=== PATIENT | female | born 1965 | race Caucasian/White ===

== ENCOUNTER 2018-03-05 08:29 | Day surgery (SDC) | payer OTHER ==
[2018-03-03 14:49] VITALS: BMI 34.7
[~2018-03-05 08:29] MED LIST: LACTATED RINGERS 1,000 ML IV SCH; LIDOCAINE 1% 20 ML VIAL (10MG/ML) FOR IV START INTRADERMA PRN; MIDAZOLAM (PF) 2 MG/2 ML VIAL IV PRN
[2018-03-05 09:04] VITALS: RESP 16; TEMP 98.8
[2018-03-05] MEDS ORDERED: PROPOFOL 10 MG/ML 20 ML VIAL IV ONE (10:16)
--- NOTE | 2018-03-05 10:33 | P.PCN ---
Date of Procedure: 03/05/18 Procedure(s) Performed: BRIEF HISTORY: Patient is a 53-year-old pleasant, white female scheduled for an elective colonoscopy as a part of screening for colorectal neoplasia. PROCEDURE PERFORMED: Colonoscopy with snare polypectomy. PREOPERATIVE DIAGNOSIS: Screening for colorectal neoplasia. IV sedation per Anesthesia. PROCEDURE: After informed consent was obtained, the patient, was brought into the endoscopy unit. IV sedation was administered by Anesthesia under continuous monitoring. Digital rectal examination was normal. Initially the Olympus CF- 160 flexible video colonoscope was then inserted in the rectum, gradually advanced into the cecum without any difficulty. Careful examination was performed as the scope was gradually being withdrawn. Ileocecal valve and the appendiceal orifice were visualized and appeared normal. Prep was excellent. Mucosa of the cecum, ascending colon, transverse colon, descending colon, sigmoid colon,appeared normal. In the proximal rectum there were 2 polyps measuring 5 mm and 1 cm in size both of which were removed by snare polypectomy. Retroflexion was performed in the rectum and no lesions were seen. The patient tolerated the procedure well. IMPRESSION: 5 mm and 1 cm proximal rectal polyp status post polypectomy Rest of the colon appeared normal RECOMMENDATIONS: Findings of this examination were discussed with the patient as well as a family. She was advised to follow with the biopsy results. If the biopsy shows adenoma, she can have a repeat colonoscopy in 3-5 years.
[2018-03-05 10:55] VITALS: BP 132/85; PULSE 61
== END 2018-03-05 11:18 | disposition home or self-care (01) ==
LOC: ORWHC2ENDO 08:29
PROVIDERS: ATTEND Internal Medicine Gastroenterology
DX: Z12.11 Encounter for screening for malignant neoplasm of colon (principal); K62.1 Rectal polyp; I10 Essential (primary) hypertension; F39 Unspecified mood [affective] disorder; Z79.3 Long term (current) use of hormonal contraceptives; Z79.899 Other long term (current) drug therapy
CPT/HCPCS: 45385; J2704; 88305

== ENCOUNTER → 2020-03-26 | Outpatient (CLI) | payer OTHER ==
--- NOTE | 2020-03-26 10:48 | CT ---
EXAMINATION TYPE: CT soft tissue neck w con DATE OF EXAM: 03/26/2020 HISTORY: posterior neck mass (marked by BB), left side neck discomfort COMPARISON: NONE CT DLP: 543.4 mGycm. Automated Exposure Control for Dose Reduction was Utilized. TECHNIQUE: CT scan of the neck is performed with IV Contrast, patient injected with 100 mL of Isovue 300, axial images are obtained, coronal and sagittal reformatted images are reviewed. FINDINGS: Airway: No gross abnormality seen. Parotid/submandibular glands: No gross abnormality seen. Carotid/Vascular Structures: No significant abnormality seen. Osseous Structures: Underlying levoconvex scoliotic curvature or positioning in the upper thoracic sp ine. Mild to moderate disc space narrowing C4-C5 level. Other: Metallic BB placed at palpable abnormality posterior left neck axial image 51. This is at C2 v ertebral body level. No worrisome solid or cystic mass or fluid collection is identified at this leve l. There is asymmetric prominent but felt benign subcentimeter lymph node coronal image 53 correspond ing to axial image 58 just superior and lateral to the BB. There are additional scattered subcentimet er lymph nodes throughout the neck bilaterally. No suspicious greater than 1 cm adenopathy is present . IMPRESSION: No concerning mass or fluid collection
== END | disposition home or self-care (01) ==
LOC: RADCTMAIN 08:57
PROVIDERS: ATTEND Family Medicine
DX: R22.1 Localized swelling, mass and lump, neck (principal)
CPT/HCPCS: 70491; Q9967

== ENCOUNTER → 2020-04-13 | Outpatient (CLI) | payer OTHER ==
--- NOTE | 2020-04-16 11:37 | MM ---
Reason for exam: additional evaluation requested from prior study. Last mammogram was performed 1 year and 2 months ago. History: Patient history of other cancer. Family history of breast cancer in father at age 50. Excisional biopsy of the right breast, 2004. Took hormonal contraceptives beginning at age 18. Physical Findings: Nurse Summary: 0.5cm nodule in the right brast at 6 o'clock posterior nipple (nurse ms). MG 3D Diag Mammo W/Cad MELANY Bilateral CC and MLO view(s) were taken. Prior study comparison: January 27, 2019, mammogram. The breast tissue is heterogeneously dense. This may lower the sensitivity of mammography. There is no discrete abnormality. These results were verbally communicated with the patient and result sheet given to the patient on 04/13/20. ASSESSMENT: Incomplete: need additional imaging evaluation, BI-RAD 0 RECOMMENDATION: Ultrasound of the right breast. (palpable by nurse)
--- NOTE | 2020-04-16 11:39 | USB ---
Reason for exam: additional evaluation requested from abnormal screening. History: Patient history of other cancer. Family history of breast cancer in father at age 50. Excisional biopsy of the right breast, 2004. Took hormonal contraceptives beginning at age 18. US Breast Limited RT Right limited breast ultrasound including focal area of concern, retroareolar and axilla demonstrates duct ectasia at 5 o'clock posterior nipple. Targeted scanning at the palpable. Precautionary 6 month follow up mammogram. These results were verbally communicated with the patient and result sheet given to the patient on 04/13/20. ASSESSMENT: Probably benign, BI-RAD 3 RECOMMENDATION: Follow-up diagnostic mammogram of the right breast in 6 months.
== END | disposition home or self-care (01) ==
LOC: RADMAMWWP 14:53
PROVIDERS: ATTEND Family Medicine
DX: N63.10 Unspecified lump in the right breast, unspecified quadrant (principal); R92.8 Other abnormal and inconclusive findings on diagnostic imaging of breast; Z80.3 Family history of malignant neoplasm of breast
CPT/HCPCS: 77062; 77066

== ENCOUNTER → 2020-04-23 | Outpatient (CLI) | payer OTHER ==
--- NOTE | 2020-04-23 11:19 | BMR ---
EXAMINATION TYPE: MR breast BILAT wo/w con DATE OF EXAM: 04/23/2020 COMPARISON: 3-D bilateral breast mammogram April 13, 2020 BI-RADS 0. Right breast diagnostic ultras ound April 13, 2020 BI-RADS 3 HISTORY: FAMILY HISTORY OF MALIGNANT NEOPLASM OF BREAST in father, history of benign excisional biops y right breast 15 years ago, history of recent palpable right breast last week. TECHNIQUE: A series of fat and water weighted images in the long and short axis views of both breasts are obtained in conjunction with dynamic contrast MRI with subtraction technique. The patient was i njected with 10 mL intravenous Gadavist gadolinium contrast. Three-dimensional and additional postp rocessing imaging is created on independent workstation and reviewed during official interpretation o f this study. FINDINGS: Breast parenchyma redemonstrated is heterogeneously dense. T1-weighted images show no suspi cious axillary adenopathy bilaterally. T2 and STIR weighted images show some scattered tiny thin-wall ed cysts bilaterally on background fibroglandular tissue. Dynamic postcontrast imaging shows no suspi cious intramammary adenopathy. There is moderate to severe symmetric background enhancement in both b reasts identified. There are multifocal areas of rounded enhancement bilaterally on background dense tissue measuring under 5 mm in size. With regards to the right breast, no abnormal skin thickening is present. No greater than 5 mm enhanc ing masses or pathologic enhancement. The chest wall is intact. Particular attention to the 6:00 posi tion anteriorly at area of recent clinical concern noted. With regards to the left breast similar findings with slightly more numerous enhancing round lesions measuring 5 mm or smaller in size. No greater than 5 mm enhancing masses. No suspicious Skin thickeni ng. Chest wall is intact. No suspicious incidental findings. IMPRESSION: No MRI evidence for invasive malignancy in either breast. BI-RADS 2 benign findings right breast. BI-RADS 2 benign findings left breast. Recommendation: Return to routine follow-up. Patient due for bilateral breast mammogram March 2021. Consider annual MRI surveillance due to patient's increased risk and/or family history.
== END | disposition home or self-care (01) ==
LOC: RADMRIMAIN 07:43
PROVIDERS: ATTEND Nurse Practitioner Family
DX: Z09 Encounter for follow-up examination after completed treatment for conditions other than malignant neoplasm (principal); Z80.3 Family history of malignant neoplasm of breast
CPT/HCPCS: 77049; C8937; A9585

== ENCOUNTER → 2020-04-25 | Outpatient (CLI) | payer OTHER ==
--- NOTE | 2020-04-25 11:19 | CONS ---
CONSULTATION DATE OF SERVICE: 04/25/2020 This 55-year-old lady who has been evaluated in the sleep center for possible obstructive sleep apnea-hypopnea syndrome. HISTORY OF PRESENT ILLNESS/SLEEP-WAKE EVALUATION: Patient usual sleep schedule on weekdays from 10 p.m. to 5 to 5:20 a.m.; on weekends from 10 p.m. to 7 a.m. She does have problems with falling asleep, although no TV in bedroom. She usually sleeps on the side position. According to her , she snores and she has one episode of nocturia during sleep. She tosses and turns during the night, has sweating. In the morning, she wakes up tired, has difficulties paying attention, has problems with memory and concentration. [place] Sleepiness Scale is 8. Usually, she does not take any naps. PAST MEDICAL HISTORY: Positive for hypertension, hyperlipidemia, sinusitis, acid reflux, possibly ADHD, menopause. PAST SURGICAL HISTORY: Biopsy of right breast benign changes, basal cell carcinoma removed from the skin of the leg. MEDICATIONS: Propranolol 40 mg twice a day, Vyvanse 60 mg once a day, hydrochlorothiazide 12.5 mg once a day, pravastatin 40 mg once a day, aspirin 81 mg once a day. SOCIAL HISTORY: Negative for smoking. Alcohol consumption rarely. FAMILY HISTORY: Heart problems, arthritis, asthma, thyroid problems, cancer. REVIEW OF SYSTEMS: Awakenings from sleep, difficulties to concentrate during the day for several years. PHYSICAL EXAMINATION: GENERAL: lady without distress. VITAL SIGNS: BP 159/94, HR 67, RR 15, height 5 feet 7 inches, weight 230.8, BMI 36.1, temperature 98.5, oxygen saturation at room air 97%. HEENT: PERRLA, EOMI. Oropharynx extremely low position of soft palate. Mallampati 4. NECK: Supple, no JVD. Thyroid is not palpable. LUNGS: Clear to percussion and to auscultation. Good air exchange. No wheezing or rhonchi. HEART: S1, S2 regular. No murmurs, gallops, or rubs. ABDOMEN: Obese. EXTREMITIES: No clubbing or cyanosis. PROMOTIONS REPRESENTATIVE: Awake, alert, and oriented X3. Cranial nerves 2 to 7 intact. There is no fasciculation or atrophy. noted. No focal deficits observed. IMPRESSION: 1. Snoring, awakenings from sleep with nocturia, extremely low position of soft palate, Mallampati 4, difficulties to concentrate during the day, obstructive sleep apnea-hypopnea syndrome. 2. Obesity, body mass index 36.1. 3. Hypertension, not on good control with 2 medications. 4. Hyperlipidemia. 5. Sinusitis. 6. Acid reflux. 7. History of possible attention deficit hyperactivity disorder. 8. Menopause. 9. Status post basal cell carcinoma removed from the skin of the leg. PLAN: 1. Polysomnography for evaluation of patient's breathing during sleep. 2. CPAP/BiPAP titration if sleep study confirms obstructive sleep apnea-hypopnea syndrome. 3. Preferable position during sleep on the side. 4. No driving if patient feels any sleepiness. 5. I will see patient for follow up visit to explain results of testing and following plan. Thank you very much for referring this patient for consultation. Sincerely, Sunny Alba MD, PhD, FAASM Diplomat of [place] [employer] [place] [employer] Operator of [facility] [place] MMODL / IJN: [id number] /
== END | disposition home or self-care (01) ==
LOC: SLEEP 09:57
PROVIDERS: ATTEND Internal Medicine
DX: G47.33 Obstructive sleep apnea (adult) (pediatric) (principal); E66.9 Obesity, unspecified; Z68.36 Body mass index [BMI] 36.0-36.9, adult; I10 Essential (primary) hypertension; E78.5 Hyperlipidemia, unspecified; K21.9 Gastro-esophageal reflux disease without esophagitis; J32.9 Chronic sinusitis, unspecified; Z78.0 Asymptomatic menopausal state; Z86.012 Personal history of benign carcinoid tumor; Z99.89 Dependence on other enabling machines and devices
CPT/HCPCS: 99211

== ENCOUNTER → 2021-01-09 | Outpatient (CLI) | payer OTHER ==
--- NOTE | 2021-01-09 12:15 | MM ---
Reason for exam: follow-up at short interval from prior study. Last mammogram was performed 9 months ago. History: Patient is postmenopausal and history of other cancer. Family history of breast cancer in father at age 50. Excisional biopsy of the right breast, 2004. Took hormonal contraceptives beginning at age 18. Physical Findings: Nurse Summary: 0.5cm nodule in the right breast at 6 o'clock (nurse ms). MG 3D Diag Mammo W/Cad RT CC and MLO view(s) were taken of the right breast. Prior study comparison: April 13, 2020, bilateral MG 3d diag mammo w/cad MELANY. January 27, 2019, mammogram. The breast tissue is heterogeneously dense. This may lower the sensitivity of mammography. There is no discrete abnormality including area of concern. These results were verbally communicated with the patient and result sheet given to the patient on 01/09/21. ASSESSMENT: Incomplete: need additional imaging evaluation, BI-RAD 0 RECOMMENDATION: Ultrasound of the right breast. (at palpable) Manage patient on a clinical basis.
--- NOTE | 2021-01-09 12:16 | USB ---
Reason for exam: additional evaluation requested from abnormal screening. History: Patient is postmenopausal and history of other cancer. Family history of breast cancer in father at age 50. Excisional biopsy of the right breast, 2004. Took hormonal contraceptives beginning at age 18. US Breast Limited RT Right limited breast ultrasound including focal area of concern, retroareolar and axilla demonstrates ducts at the posterior nipple. These results were verbally communicated with the patient and result sheet given to the patient on 01/09/21. ASSESSMENT: Benign, BI-RAD 2 RECOMMENDATION: Routine screening mammogram of both breasts in 3 months. Back on schedule for March 2021. Manage patient on a clinical basis.
== END | disposition home or self-care (01) ==
LOC: RADMAMWWP 10:47
PROVIDERS: ATTEND Family Medicine
DX: R92.2 Inconclusive mammogram (principal); Z80.3 Family history of malignant neoplasm of breast
CPT/HCPCS: 77061; 77065

== ENCOUNTER → 2022-10-16 | Outpatient (CLI) | payer OTHER ==
--- NOTE | 2022-10-17 07:26 | MM ---
Reason for Exam: Screening (asymptomatic). Last mammogram was performed 1 year(s) and 3 month(s) ago. Patient History: Menarche at age 14. First Full-Term at age 29. Postmenopausal. Other cancer, age 46. Hormonal Contraceptives, from age 18 until age 52. 2004, Excisional Biopsy on the Right side. Father had breast cancer, age 50. Risk Values: More 5 year model risk: 1.6%. NCI Lifetime model risk: 10.4%. Prior Study Comparison: 04/13/2020 Bilateral Diagnostic Mammogram, [facility]. 01/09/2021 Right Diagnostic Mammogram, [facility]. 06/25/2021 Bilateral Screening Mammogram, [facility]. Tissue Density: The breast tissue is heterogeneously dense. This may lower the sensitivity of mammography. Findings: Analyzed By CAD. There is no suspicious group of microcalcifications or new suspicious mass in either breast. Overall Assessment: Benign, BI-RAD 2 Management: Screening Mammogram of both breasts in 1 year. . Patient should continue monthly self-breast exams. A clinical breast exam by your physician is recommended on an annual basis. This exam should not preclude additional follow-up of suspicious palpable abnormalities. Note on More scores and lifetime risk: 1. A More score greater than 3% is considered moderate risk. If this is the case, consider specialist referral to assess eligibility for a risk reducing agent. 2. If overall lifetime risk for the development of breast cancer is 20% or higher, the patient may qualify for future screening with alternating mammogram and breast MRI. Electronically signed and approved by: Shawn Castro M.D. Radiologis
== END | disposition home or self-care (01) ==
LOC: RADMAMWWP 08:21
PROVIDERS: ATTEND Family Medicine
DX: Z12.31 Encounter for screening mammogram for malignant neoplasm of breast (principal); Z78.0 Asymptomatic menopausal state; Z80.3 Family history of malignant neoplasm of breast
CPT/HCPCS: 77063; 77067

== ENCOUNTER 2023-01-27 09:13 | Day surgery (SDC) | payer OTHER ==
[~2023-01-27 09:13] MED LIST changes: +LIDOCAINE 1% (10MG/ML) FOR IV START INTRADERMA PRN; -LIDOCAINE 1% 20 ML VIAL (10MG/ML) FOR IV START INTRADERMA PRN; -MIDAZOLAM (PF) 2 MG/2 ML VIAL IV PRN
[2023-01-27 09:51] VITALS: RESP 16; TEMP 97.4
[2023-01-27] MEDS ORDERED: PROPOFOL 10 MG/ML 20 ML VIAL IV ONE (10:07)
--- NOTE | 2023-01-27 10:14 | P.GSHP ---
History of Present Illness H&P Date: 01/27/23 Chief Complaint: Colon cancer screening 58-year-old here for colonoscopy. Last colonoscopy 5 years ago had 2 hyperplastic polyps. No bowel complaints. No family history of colon cancer. Past Medical History Past Medical History: Cancer, GERD/Reflux, Hyperlipidemia, Hypertension, Sleep Apnea/CPAP/BIPAP Additional Past Medical History / Comment(s): occasional blood in stool in past, no longer needs BP med due to weight loss, essential tremors, had sleep study- was dx. & then had bariatric before got CPAP, no longer having problems, skin cancer History of Any Multi-Drug Resistant Organisms: None Reported Past Surgical History: Bariatric Surgery, Breast Surgery Additional Past Surgical History / Comment(s): LT BREAST LUMPECTOMY-BENIGN, gastric sleeve 2 1/2yrs ago Past Anesthesia/Blood Transfusion Reactions: No Reported Reaction, Motion Sickness Smoking Status: Never smoker - Past Family History Father Family Medical History: Cancer Medications and Allergies Home Medications Medication Instructions Recorded Confirmed Type ALPRAZolam [Xanax] 0.25 mg PO DAILY PRN 03/03/18 01/23/23 History Calcium Citrate/Vitamin D3 1 each PO DAILY 03/03/18 01/23/23 History [Calcitrate + Vit D Caplet] Multivit/Folic Acid/Vit K1 1 each PO DAILY 03/03/18 01/23/23 History [One-A-Day Women's 50 Plus Tab] Omeprazole 40 mg PO DAILY PRN 03/03/18 01/23/23 History Propranolol [Inderal] 20 mg PO BID 03/03/18 01/23/23 History hydroCHLOROthiazide 12.5 mg PO DAILY 03/03/18 01/23/23 History Aspirin [[place] Aspirin EC] 81 mg PO DAILY 01/23/23 01/23/23 History Dextroamphetamine/Amphetamine 30 mg PO BID 01/27/23 01/27/23 History [Adderall] Allergies Allergy/AdvReac Type Severity Reaction Status Date / Time No Known Allergies Allergy Verified 01/27/23 09:40 Surgical - Exam Vital Signs Temp Pulse Resp BP Pulse Ox 97.4 F L 62 16 137/85 99 01/27/23 09:40 01/27/23 09:40 01/27/23 09:40 01/27/23 09:40 01/27/23 09:40 Physical exam: General: Well-developed, well-nourished HEENT: Normocephalic, sclerae nonicteric Abdomen: Nontender, nondistended Extremities: No edema Neuro: Alert and oriented Assessment and Plan (1) Colon cancer screening Narrative/Plan: Will proceed with colonoscopy at this time. Current Visit: Yes Status: Acute Code(s): Z12.11 - ENCOUNTER FOR SCREENING FOR MALIGNANT NEOPLASM OF COLON SNOMED Code(s): 637270018
--- NOTE | 2023-01-27 10:30 | P.PCN ---
Date of Procedure: 01/27/23 Procedure(s) Performed: PREOPERATIVE DIAGNOSIS: Colon cancer screening POSTOPERATIVE DIAGNOSIS: Sigmoid colon polyp PROCEDURE: Colonoscopy ANESTHESIA: MAC SURGEON: Cyril Russell M.D. SPECIMENS: Polyp ENDOSCOPIC PROCEDURE: The patient was placed on the endoscopy table in the left decubitus position. The Olympus colonoscope was inserted into the anus and passed under direct visualization to the base of the cecum. The appendiceal orifice was visualized. From that point the scope was slowly withdrawn inspecting all surfaces carefully. There were no neoplastic inflammatory or polypoid lesions throughout the cecum, ascending, transverse, and descending colon. In the sigmoid colon a small polyp seen and removed using the snare with cautery technique. The remainder the sigmoid and rectum was normal. There was no visible diverticulosis. Digital rectal examination was normal. The patient was taken to the recovery room in stable condition per anesthesia guidelines. RECOMMENDATIONS: Polyp was not in the trap at the end of the procedure. They are checking the scope to see if maybe the polyp is in the button or access port. If no polyp retrieved recommend repeat colonoscopy 5-7 years.
[2023-01-27 11:08] VITALS: BP 115/78; PULSE 61
== END 2023-01-27 11:13 | disposition home or self-care (01) ==
LOC: ORWHC2ENDO 09:13
PROVIDERS: ATTEND Surgery
DX: Z12.11 Encounter for screening for malignant neoplasm of colon (principal); K63.5 Polyp of colon; K21.9 Gastro-esophageal reflux disease without esophagitis; E78.5 Hyperlipidemia, unspecified; I10 Essential (primary) hypertension; G47.33 Obstructive sleep apnea (adult) (pediatric); Z79.82 Long term (current) use of aspirin; Z79.899 Other long term (current) drug therapy; Z98.890 Other specified postprocedural states
CPT/HCPCS: 45385; J2704

== ENCOUNTER → 2023-09-15 | Outpatient (CLI) | payer OTHER ==
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
== END | disposition home or self-care (01) ==
LOC: RADCTMAIN 11:59
PROVIDERS: ATTEND Family Medicine
DX: J32.9 Chronic sinusitis, unspecified (principal); J34.89 Other specified disorders of nose and nasal sinuses
CPT/HCPCS: 70486

== ENCOUNTER → 2024-07-19 | Outpatient (CLI) | payer OTHER ==
--- NOTE | 2024-07-19 09:05 | MM ---
Reason for Exam: Screening (asymptomatic). Last mammogram was performed 1 year(s) and 9 month(s) ago. Patient History: Menarche at age 14. First Full-Term at age 29. Postmenopausal. Other cancer, age 46. Hormonal Contraceptives, from age 18 until age 52. 2005, Excisional Biopsy on the Right side. Father had breast cancer, age 50. Risk Values: More 5 year model risk: 1.8%. NCI Lifetime model risk: 10.0%. Prior Study Comparison: 01/09/2021 Right Diagnostic Mammogram, [facility]. 06/25/2021 Bilateral Screening Mammogram, [facility]. 10/16/2022 Bilateral MG 3D screening mammo w/cad, [facility]. Tissue Density: The breasts are heterogeneously dense, which may obscure small masses. Findings: Analyzed By CAD. Benign-appearing bilateral axillary lymph nodes are redemonstrated. There is no suspicious group of microcalcifications or new suspicious mass in either breast. Overall Assessment: Negative, BI-RAD 1 Management: Screening Mammogram of both breasts in 1 year. . Patient should continue monthly self-breast exams. A clinical breast exam by your physician is recommended on an annual basis. This exam should not preclude additional follow-up of suspicious palpable abnormalities. Note on More scores and lifetime risk: 1. A More score greater than 3% is considered moderate risk. If this is the case, consider specialist referral to assess eligibility for a risk reducing agent. 2. If overall lifetime risk for the development of breast cancer is 20% or higher, the patient may qualify for future screening with alternating mammogram and breast MRI. [facility], , 07/19/2024 9:02 AM. Electronically signed and approved by: Shaji Johnson M.D.
== END | disposition home or self-care (01) ==
LOC: RADMAMWWP 08:42
PROVIDERS: ATTEND Family Medicine
DX: Z12.31 Encounter for screening mammogram for malignant neoplasm of breast (principal); R92.333 Mammographic heterogeneous density, bilateral breasts; Z80.3 Family history of malignant neoplasm of breast; Z78.0 Asymptomatic menopausal state; Z92.0 Personal history of contraception
CPT/HCPCS: 77063; 77067